=== PATIENT | female | born 1975 | race Caucasian/White ===

== ENCOUNTER 2018-01-13 16:08 | Emergency (ER) | payer SELFPAY ==
[~2018-01-13] VITALS: Ht 162.6 cm; Wt 101.2 kg
[2018-01-13] MEDS ORDERED: cloNIDine 0.2 MG (CATAPRES) TAB ONE (16:16)
[2018-01-13] MEDS ORDERED: NS 250 ML (IVPB) BAG IV ONE (16:30)
[2018-01-13] MEDS ORDERED: IOHEXOL 350 MG/ML 150 ML (OMNIPAQUE 350) VIAL IV ONE (16:30)
[2018-01-13] MEDS ORDERED: cloNIDine 0.1 MG (CATAPRES) TAB PO ONE (16:30)
[2018-01-13 16:42] LABS: BASOPHILS % (AUTO) 0 % (0-10); EOSINOPHILS # (AUTO) 0.2 10^3/uL (0.0-0.3); EOSINOPHILS % (AUTO) 1 % (0-10); HEMATOCRIT 35 % (35-52); HEMOGLOBIN 11.6 G/DL (11.5-16.0); LYMPHOCYTES # (AUTO) 2.2 X 10^3 (1.0-4.0); LYMPHOCYTES % (AUTO) 20 % (12-44); MEAN CORPUSCULAR HEMOGLOBIN 25 PG (25-34); MEAN CORPUSCULAR HGB CONC 33 G/DL (32-36); MEAN CORPUSCULAR VOLUME 75 FL (80-99); MEAN PLATELET VOLUME 11.1 FL (7.4-10.4); MONOCYTES # (AUTO) 1.2 X 10^3 (0.0-1.0); MONOCYTES % (AUTO) 11 % (0-12); NEUTROPHILS # (AUTO) 7.3 X 10^3 (1.8-7.8); NEUTROPHILS % (AUTO) 67 % (42-75); PLATELET COUNT 334 10^3/uL (130-400); RED BLOOD COUNT 4.68 10^6/uL (4.35-5.85); RED CELL DISTRIBUTION WIDTH 14.9 % (10.0-14.5); WHITE BLOOD COUNT 10.8 10^3/uL (4.3-11.0)
--- NOTE | 2018-01-13 16:49 | ED Cardiac General ---
History of Present Illness General Chief Complaint: Cardiac/General Problems Source: patient Exam Limitations: no limitations History of Present Illness Date Seen by Provider: Jan 13, 2018 Time Seen by Provider: 16:44 Initial Comments to ER per EMS from [facility] with reports of hypertension and right arm pain. She states that the right arm pain begins at the base of her neck and travels all the way down to her fingertips. This began on Friday, 2 days ago. No known injury. She has intermittent chest pain but none currently. She has hypertension and was noted at the clinic to be 200/100. She's been out of her blood pressure medications for some more between 2-3 months because of finances. she is Iranian-speaking only. Timing/Duration: changing over time, intermittent, 2-3 days Severity: moderate Activities at Onset: none NTG SL WEAVER TIRE CORD: No ASA po WEAVER TIRE CORD: Yes (given by EMS in route) Associated Systoms: Chest Pain (iintermittently but none currently); No Shortness of Air Allergies and Home Medications Allergies Coded Allergies: No Known Drug Allergies (Unverified , 01/13/18) Patient Home Medication List Home Medication List Reviewed: Yes Review of Systems Constitutional: see HPI EENTM: No Symptoms Reported Respiratory: No Symptoms Reported Cardiovascular: See HPI, Chest Pain (intermittently but none currently) Gastrointestinal: No Symptoms Reported Genitourinary: No Symptoms Reported Musculoskeletal: see HPI, other (right arm pain) Skin: no symptoms reported Psychiatric/Neurological: No Symptoms Reported Physical Exam Vital Signs Vital Signs - First Documented 01/13/18 16:08 Temp 97.6 Pulse 91 Resp 20 B/P (MAP) 205/138 (160) O2 Delivery Room Air Capillary Refill : General Appearance: No Apparent Distress, WD/WN, Obese HEENT: PERRL/EOMI, TMs Normal Neck: Full Range of Motion, Normal Inspection Respiratory: Normal Breath Sounds, No Accessory Muscle Use, No Respiratory Distress, Other (radial pulses are equal) Cardiovascular: Regular Rate, Rhythm Gastrointestinal: Non Tender, Soft Neurologic/Psychiatric: Alert, Oriented x3 Skin: Normal Color, Warm/Dry Other comments pleasant and in no distress. Hypertensive at 205/130. She was given 0.2 mg of clonidine on arrival to ER. Heart rate is 92 sinus without ectopy. Progress/Results/Core Measures Results/Orders Lab Results Laboratory Tests Test 01/13/18 16:30 Range/Units White Blood Count 10.8 4.3-11.0 10^3/uL Red Blood Count 4.68 4.35-5.85 10^6/uL Hemoglobin 11.6 11.5-16.0 G/DL Hematocrit 35 35-52 % Mean Corpuscular Volume 75 L 80-99 FL Mean Corpuscular Hemoglobin 25 25-34 PG Mean Corpuscular Hemoglobin Concent 33 32-36 G/DL Red Cell Distribution Width 14.9 H 10.0-14.5 % Platelet Count 334 130-400 10^3/uL Mean Platelet Volume 11.1 H 7.4-10.4 FL Neutrophils (%) (Auto) 67 42-75 % Lymphocytes (%) (Auto) 20 12-44 % Monocytes (%) (Auto) 11 0-12 % Eosinophils (%) (Auto) 1 0-10 % Basophils (%) (Auto) 0 0-10 % Neutrophils # (Auto) 7.3 1.8-7.8 X 10^3 Lymphocytes # (Auto) 2.2 1.0-4.0 X 10^3 Monocytes # (Auto) 1.2 H 0.0-1.0 X 10^3 Eosinophils # (Auto) 0.2 0.0-0.3 10^3/uL Basophils # (Auto) 0.0 0.0-0.1 10^3/uL Prothrombin Time 13.7 12.2-14.7 SEC INR Comment 1.1 0.8-1.4 Activated Partial Thromboplast Time 29 24-35 SEC Sodium Level 138 135-145 MMOL/L Potassium Level 3.9 3.6-5.0 MMOL/L Chloride Level 105 98-107 MMOL/L Carbon Dioxide Level 24 21-32 MMOL/L Anion Gap 9 5-14 MMOL/L Blood Urea Nitrogen 12 7-18 MG/DL Creatinine 0.65 0.60-1.30 MG/DL Estimat Glomerular Filtration Rate > 60 BUN/Creatinine Ratio 18 Glucose Level 93 70-105 MG/DL Calcium Level 9.0 8.5-10.1 MG/DL Magnesium Level 2.4 1.8-2.4 MG/DL Total Bilirubin 0.5 0.1-1.0 MG/DL Aspartate Amino Transf (AST/SGOT) 35 H 5-34 U/L Alanine Aminotransferase (ALT/SGPT) 28 0-55 U/L Alkaline Phosphatase 75 40-136 U/L Myoglobin 14.7 10.0-92.0 NG/ML Troponin I < 0.30 <0.30 NG/ML B-Type Natriuretic Peptide 30.3 <100.0 PG/ML Total Protein 7.8 6.4-8.2 GM/DL Albumin 4.0 3.2-4.5 GM/DL Serum Test, Qualitative NEGATIVE NEGATIVE My Orders Orders - ED PHILLIPS APRN Cbc With Automated Diff (01/13/18 16:25) Magnesium (01/13/18 16:25) Chest 1 View, Ap/Pa Only (01/13/18 16:) Ekg Tracing (01/13/18 16:) Cardiac Profile 1 (01/13/18 16:25) Comprehensive Metabolic Panel (01/13/18 16:25) Myoglobin Serum (01/13/18 16:25) Protime With Inr (01/13/18 16:25) Partial Thromboplastin Time (01/13/18 16:25) O2 (01/13/18 16:25) Monitor-Rhythm Ecg Trace Only (01/13/18 16:25) Lipid Panel (01/14/18 06:00) Saline Lock/Iv-Start (01/13/18 16:25) BNP (01/13/18 16:25) Ct Angio Chest W (01/13/18 16:25) Ct Head Wo (01/13/18 16:25) Clonidine Tablet (Catapres Tablet) (01/13/18 16:30) Iohexol Injection (Omnipaque 350 Mg/Ml 1 (01/13/18 16:30) Ns (Ivpb) (Sodium Chloride 0.9%) (01/13/18 16:30) Hcg,Qualitative Serum (01/13/18 16:57) Metoprolol Tartrate Injection (Lopressor (01/13/18 17:15) Medications Given in ED Current Medications Medications Dose Ordered Sig/Yong Route Start Time Stop Time Status Last Admin Dose Admin Clonidine HCl 0.2 mg STK-MED ONCE .ROUTE 01/13/18 16:16 01/13/18 16:17 DC 01/13/18 16:33 0.2 MG Iohexol 125 ml ONCE ONCE IV 01/13/18 16:30 01/13/18 16:32 DC 01/13/18 18:09 125 ML Metoprolol Tartrate 5 mg ONCE ONCE IV 01/13/18 17:15 01/13/18 17:16 DC 01/13/18 17:22 5 MG Sodium Chloride 250 ml ONCE ONCE IV 01/13/18 16:30 01/13/18 16:32 DC 01/13/18 18:09 80 ML Vital Signs/I&O 01/13/18 16:08 Temp 97.6 Pulse 91 Resp 20 B/P (MAP) 205/138 (160) O2 Delivery Room Air Initial ECG Impression Date: Jan 13, 2018 Initial ECG Impression Time: 16:49 Initial ECG Rhythm: Normal Sinus Initial ECG Intervals: Normal Comment EKG is rate of 92 without ectopy normal sinus. No ST segment change. Borderline Q waves in the inferior leads. Diagnostic Imaging Diagonstic Imaging: CT Comments NAME: [facility] REC#: [id number] PT STATUS: REG ER : 1975 PHYSICIAN: ED PHILLIPS [employer] ATTENDANT ADMIT DATE: 01/13/18/ER Draft Date of Exam:01/13/18 CT ANGIO CHEST W PROCEDURE: CT angiography of the chest with contrast. TECHNIQUE: Multiple contiguous axial images were obtained through the chest after uneventful bolus administration of intravenous contrast. Reconstructed CTA MIP acquisitions were also performed. INDICATION: Palpitations and hypertension and right arm pain as well as chest pain. COMPARISON: No prior studies are available for comparison. FINDINGS: Evaluation of the pulmonary arterial system is without evidence of thromboembolism. No filling defects are identified within the central, lobar or segmental branches. The thoracic aorta is normal caliber. No dissection is seen. No pericardial or pleural fluid is identified. No pulmonary infiltrates, nodules, or masses are seen. No axillary, hilar, or mediastinal lymphadenopathy is detected. Upper abdomen does show diffuse low density throughout the liver consistent with hepatic steatosis. There are multiple stones within the gallbladder. IMPRESSION: 1. No evidence of pulmonary embolism or thoracic aortic dissection. 2. Cholelithiasis. 3. Hepatic steatosis. Dictated on workstation # [id number] Dict: 01/13/18 1811 Trans: 01/13/18 1825 [id number] Interpreted by: ANTHONY CHAPA MD Electronically signed by: Departure Communication (Admissions) [phone]- [phone] the lab results and CT results with her via [employer] phone interpreters. She understands these instructions. We will start her on lisinopril 5 mg daily and atenolol 50 mg daily in addition to a short course of hydrocodone for pain control with follow-up at the clinic for further evaluation of the neck pain. Impression Primary Impression: Cervical radiculopathy Additional Impression: Hypertension Disposition: 01 HOME, SELF-CARE Condition: Stable Departure-Patient Inst. Decision time for Depature: 18:33 Referrals: [facility] (PCP) Primary Care Physician Patient Instructions: High Blood Pressure (DC) Add. Discharge Instructions: 1. Take the medication as directed. Her blood pressure needs reduced. All other with your regular doctor later next week for recheck. Return to ER for any concerns. 2. I suspect the pain in your right arm may be from a bulging disc in her neck. When you follow up with your doctor next week discussed this with them, they may wish to pursue MRI of your neck. take the pain medication as directed. All discharge instructions reviewed with patient and/or family. Voiced understanding. Scripts Hydrocodone/Acetaminophen ([place] 5-325 Tablet) 1 Each Tablet 1 EACH PO Q4H PRN for PAIN-SEVERE, #14 TAB Prov: ED PHILLIPS APRN 01/13/18 Atenolol (Atenolol) 50 Mg Tablet 50 MG PO DAILY, #14 TAB Prov: ED PHILLIPS APRN 01/13/18 Lisinopril (Lisinopril) 5 Mg Tablet 5 MG PO DAILY, #14 TAB Prov: ED PHILLIPS [employer] ATTENDANT 01/13/18 ED PHILLIPS APRN Jan 13, 2018 16:49
[2018-01-13 16:55] LABS: INR 1.1 (0.8-1.4); PROTHROMBIN TIME PATIENT 13.7 SEC (12.2-14.7)
[2018-01-13 17:04] LABS: ALANINE AMINOTRANSFERASE 28 U/L (0-55); ALKALINE PHOSPHATASE 75 U/L (40-136); BILIRUBIN,TOTAL 0.5 MG/DL (0.1-1.0); BUN/CREATININE RATIO 18; CARBON DIOXIDE 24 MMOL/L (21-32); CHLORIDE 105 MMOL/L (98-107); CREATININE SERUM 0.65 MG/DL (0.60-1.30); GFR ESTIMATED > 60; GLUCOSE 93 MG/DL (70-105); MAGNESIUM 2.4 MG/DL (1.8-2.4); POTASSIUM 3.9 MMOL/L (3.6-5.0); SODIUM 138 MMOL/L (135-145); TOTAL PROTEIN 7.8 GM/DL (6.4-8.2)
[2018-01-13 17:10] LABS: MYOGLOBIN SERUM 14.7 NG/ML (10.0-92.0)
[2018-01-13] MEDS ORDERED: meTOprolol 5 MG/5 ML (LOPRESSOR) VIAL IV ONE (17:15)
--- NOTE | 2018-01-13 17:16 | Diagnostic Imaging Report ---
INDICATION: Palpitations and hypertension. TIME OF EXAM: 5:06 PM COMPARISON: No prior studies are available for comparison. FINDINGS: The heart size is normal. The pulmonary vascularity is unremarkable. The lungs are clear. No infiltrate, effusion or pneumothorax is detected. IMPRESSION: No acute cardiopulmonary process is detected. Dictated by: Dictated on workstation # [id number]
--- NOTE | 2018-01-13 18:17 | Diagnostic Imaging Report ---
PROCEDURE: CT head without contrast. TECHNIQUE: Multiple contiguous axial images were obtained through the brain without the use of intravenous contrast. INDICATION: Palpitations and hypertension. COMPARISON: No prior studies are available for comparison. FINDINGS: The ventricles and sulci are within normal limits. No sulcal effacement, midline shift, or hemorrhage is detected. Cisterns are patent. Visualized paranasal sinuses demonstrate mucosal thickening of the left maxillary sinus. IMPRESSION: 1. No acute intracranial process is detected. 2. Left maxillary sinus mucosal disease. Dictated by: Dictated on workstation # [id number]
--- NOTE | 2018-01-13 18:26 | Diagnostic Imaging Report ---
PROCEDURE: CT angiography of the chest with contrast. TECHNIQUE: Multiple contiguous axial images were obtained through the chest after uneventful bolus administration of intravenous contrast. Reconstructed CTA MIP acquisitions were also performed. INDICATION: Palpitations and hypertension and right arm pain as well as chest pain. COMPARISON: No prior studies are available for comparison. FINDINGS: Evaluation of the pulmonary arterial system is without evidence of thromboembolism. No filling defects are identified within the central, lobar or segmental branches. The thoracic aorta is normal caliber. No dissection is seen. No pericardial or pleural fluid is identified. No pulmonary infiltrates, nodules, or masses are seen. No axillary, hilar, or mediastinal lymphadenopathy is detected. Upper abdomen does show diffuse low density throughout the liver consistent with hepatic steatosis. There are multiple stones within the gallbladder. IMPRESSION: 1. No evidence of pulmonary embolism or thoracic aortic dissection. 2. Cholelithiasis. 3. Hepatic steatosis. Dictated by: Dictated on workstation # [id number]
[2018-01-13] MEDS ORDERED: HYDR-757 PO (18:54)
[2018-01-13] MEDS ORDERED: ATEN50TA PO (18:54)
[2018-01-13] MEDS ORDERED: LISI-556 PO (18:54)
[2018-01-13] MEDS ORDERED: HYDROcodone/APAP 5 MG/325 MG (LORTAB) TAB PO ONE (19:15)
[2018-01-13 19:21] VITALS: BP 166/108
== END 2018-01-13 19:21 | disposition home or self-care (01) ==
LOC: ER 16:10
DX: M54.12 Radiculopathy, cervical region (principal); I10 Essential (primary) hypertension
CPT/HCPCS: 36415; 70450; 71045; 71275; 80053; 83735; 83874; 83880; 84484; 84703; 85025; 85610; 85730; 93005; 93041; 96374

== ENCOUNTER → 2022-01-01 | Outpatient (CLI) | payer OTHER ==
[~2022-01-01] MED LIST: ATEN50TA PO; HYDR-4226 PO; LISI5TAB20 PO
--- NOTE | 2022-01-01 16:12 | Diagnostic Imaging Report ---
PROCEDURE: CT abdomen and pelvis without contrast. TECHNIQUE: Multiple contiguous axial images were obtained through the abdomen and pelvis without the use of intravenous contrast. Auto Exposure Controls were utilized during the CT exam to meet ALARA standards for radiation dose reduction. INDICATION: Generalized abdominal pain. COMPARISON: No prior studies are available for comparison. FINDINGS: The lung bases are clear. The liver demonstrates marked low attenuation consistent with hepatic steatosis. The liver is enlarged measuring up to 26 cm. No discrete liver mass is detected. Gallbladder is surgically absent. Pancreas and spleen are unremarkable. No adrenal mass is identified. Kidneys are without calculi or hydronephrosis. Aorta is nonaneurysmal. The bowel loops are normal in caliber. There is no obstruction. Appendix is visualized and unremarkable. There does appear to be a fat-containing left paramidline ventral hernia. No herniated bowel loops are identified. There is no free fluid or fluid collection identified. The uterus is surgically absent. The bladder is unremarkable. IMPRESSION: 1. Hepatomegaly and hepatic steatosis. 2. Left paramidline fat-containing ventral hernia. No herniated bowel loops or evidence of bowel obstruction is identified. Dictated by: Dictated on workstation # [id number]
== END ==
LOC: RAD 15:12
PROVIDERS: ATTEND Surgery
DX: K76.0 Fatty (change of) liver, not elsewhere classified (principal); K43.9 Ventral hernia without obstruction or gangrene
CPT/HCPCS: 74176